=== PATIENT | male | born 1940 | race Caucasian/White ===

== ENCOUNTER 2017-12-05 11:01 | Outpatient (REF) | payer MEDICARE, BC, SELFPAY ==
[2017-12-05 20:52] LABS: Anion Gap 11.6 mmol/L (3-11); BUN 34 mg/dL (7-18); CO2 25.4 mmol/L (21.0-32.0); CREATININE 1.24 mg/dL (0.70-1.30); Chloride 103 mmol/L (98-107); Estimated GFR 56.83 (mL/min/1.73m2); Glucose 104 mg/dL (70-100); Potassium 4.2 mmol/L (3.5-5.1); Sodium 140 mmol/L (136-145)
[2017-12-06 12:54] LABS: Calcium 9.2 mg/dL (8.5-10.1)
== END 2017-12-05 11:21 ==
LOC: NCHCN 11:01
PROVIDERS: PCP Family Medicine; Visit Provider Family Medicine
DX: R25.2 Cramp and spasm (principal)
CPT/HCPCS: 80048; 83735

== ENCOUNTER 2018-12-06 08:40 | Outpatient (REF) | payer MEDICARE, BC, SELFPAY ==
[2018-12-06 21:37] LABS: Anion Gap 9.3 mmol/L (3-11); BUN 32 mg/dL (7-18); CO2 27.7 mmol/L (21.0-32.0); CREATININE 1.35 mg/dL (0.70-1.30); Calcium 9.2 mg/dL (8.5-10.1); Chloride 104 mmol/L (98-107); Estimated GFR 51.38 (mL/min/1.73m2); Glucose 117 mg/dL (70-100); Potassium 4.2 mmol/L (3.5-5.1); Sodium 141 mmol/L (136-145); Uric Acid 5.9 mg/dL (3.5-7.2)
[2018-12-06 22:13] LABS: Hemoglobin A1C 5.8 % (4.5-6.2)
== END 2018-12-06 09:00 ==
LOC: NCHCN 08:40
PROVIDERS: PCP Family Medicine; Visit Provider Family Medicine
DX: I10 Essential (primary) hypertension (principal); R73.02 Impaired glucose tolerance (oral); M10.9 Gout, unspecified
CPT/HCPCS: 80048; 83036; 84550

== ENCOUNTER 2019-03-05 22:05 | Outpatient (REF) | payer MEDICARE, BC, SELFPAY ==
[2019-03-05 21:10] LABS: COMMENT (LAB VIEW ONLY) 73.14 mg/dL
[2019-03-05 21:50] LABS: Microalb ug/mg Crea 134.3 ug/mg Cr
== END 2019-03-05 22:25 ==
LOC: NCHCN 22:05
PROVIDERS: PCP Family Medicine; Visit Provider Family Medicine
DX: R73.03 Prediabetes (principal)
CPT/HCPCS: 82043; 82570

== ENCOUNTER 2019-03-26 09:44 | Outpatient (REF) | payer MEDICARE, BC, SELFPAY ==
--- NOTE | 2019-03-26 08:40 | SKI_PTH ---
PATIENT: Atul Marino LOC: NCN #:[id number] AGE/SX: 79/M ROOM: RE03/26/[address]: Paradise Lucas : 1940 BED: DIS: 03/26/2019 SPEC #: [id number] RECD: 03/27/19 11:45 STATUS: CANDICE RESotero #: [id number] KAELB: 03/26/19 08:[address]: Paradise Lucas DEPT: Surgical Specimen RECD BY: Gerri Manjarrez Tissues: 1 - SKIN BIOPSY(SHAVE/PUNCH) 2 - SKIN BIOPSY(SHAVE/PUNCH) Procedures: SKIN LEVEL 4 Comments: [id number]
== END 2019-03-26 10:04 ==
LOC: NCHCN 09:44
PROVIDERS: PCP Family Medicine; Visit Provider Family Medicine
DX: L57.0 Actinic keratosis (principal)
CPT/HCPCS: 88305

== ENCOUNTER 2019-12-03 11:26 | Outpatient (REF) | payer MEDICARE, BC, SELFPAY ==
--- NOTE | 2019-12-03 09:30 | SKI_PTH ---
PATIENT: Atul Marino LOC: NCN U#:[id number] AGE/SX: 79/M ROOM: RE12/03/[address]: Paradise Lucas : 1940 BED: DIS: 12/03/2019 SPEC #: [id number] RECD: 12/04/19 12:31 STATUS: CANDICE RESotero #: [id number] KALEB: 12/03/19 09:[address]: Paradise Lucas DEPT: Surgical Specimen RECD BY: Gerri Manjarrez Tissues: 1 - SKIN BIOPSY(SHAVE/PUNCH) Procedures: SKIN LEVEL 4 Comments: [id number]
== END 2019-12-03 11:46 ==
LOC: NCHCN 11:26
PROVIDERS: PCP Family Medicine; Visit Provider Family Medicine
DX: L57.0 Actinic keratosis (principal)
CPT/HCPCS: 88305

== ENCOUNTER 2020-04-17 12:15 | Outpatient (REF) | payer MEDICARE, BC, SELFPAY ==
[2020-04-17 21:26] LABS: COMMENT (LAB VIEW ONLY) 85.91 mg/dL; Microalb ug/mg Crea 62.2 ug/mg Cr
[2020-04-17 21:29] LABS: ALT 24 U/L (16-63); AST 18 U/L (15-37); Albumin 4.2 g/dL (3.4-5.0); Alkaline Phosphatase 71 U/L (46-116); Anion Gap 6.1 mmol/L (3-11); BUN 31 mg/dL (7-18); Bilirubin, Total 0.9 mg/dL (0.2-1.0); CO2 26.9 mmol/L (21.0-32.0); CREATININE 1.3 mg/dL (0.70-1.30); Calcium 9.5 mg/dL (8.5-10.1); Calculated LDL 62 mg/dL (<100); Chloride 103 mmol/L (98-107); Cholesterol 165 mg/dL (<200); Estimated GFR 53.39 (mL/min/1.73m2); Glucose 114 mg/dL (74-106); HDL Cholesterol 59 mg/dL (40-60); Hemoglobin A1C 5.8 % (<5.7); Sodium 136 mmol/L (136-145); Total Protein 7.3 g/dL (6.4-8.2); Triglyceride 221 mg/dL (<150)
== END 2020-04-17 12:16 | disposition home or self-care (01) ==
LOC: NCHCN 12:15
PROVIDERS: PCP Family Medicine; Visit Provider Family Medicine
DX: I10 Essential (primary) hypertension (principal); E78.5 Hyperlipidemia, unspecified; R73.03 Prediabetes; I25.10 Atherosclerotic heart disease of native coronary artery without angina pectoris
CPT/HCPCS: 80053; 80061; 82043; 82570; 83036

== ENCOUNTER 2021-08-10 19:26 | Outpatient (REF) | payer MEDICARE, BC, SELFPAY ==
[2021-08-10 14:33] LABS: HCT 39.8 % (40.0-50.0); HGB 13.5 g/dL (13.5-17.5); MCH 31.8 pg (27.0-33.0); MCHC 33.9 % (32.0-36.0); MCV 94 fL (80-95); MPV 11.2 fL (8.0-11.0); Platelet Count 245 10^3/uL (130-400); RBC 4.24 10^6/uL (4.36-5.78); RDW 12.8 % (11.8-14.1); RDW-SD 44.1 fL; WBC 7.26 10^3/uL (4.4-10.8)
[2021-08-10 15:55] LABS: ALT 26 U/L (16-63); AST 23 U/L (15-37); Alkaline Phosphatase 67 U/L (46-116); Anion Gap 8.9 mmol/L (3-11); BUN 35 mg/dL (7-18); Bilirubin, Total 1.4 mg/dL (0.2-1.0); CO2 28.1 mmol/L (21.0-32.0); CREATININE 1.5 mg/dL (0.70-1.30); Calcium 9.4 mg/dL (8.5-10.1); Chloride 101 mmol/L (98-107); Estimated GFR 45.14 (mL/min/1.73m2); Glucose 102 mg/dL (74-106); Potassium 4.6 mmol/L (3.5-5.1); Sodium 138 mmol/L (136-145); TSH (W/Ref FT4) 1.46 uIU/mL (0.36-3.74); Total Protein 6.5 g/dL (6.4-8.2)
[2021-08-10 16:14] LABS: Calculated LDL 44 mg/dL (<100); Cholesterol 139 mg/dL (<200); HDL Cholesterol 76 mg/dL (40-60); Triglyceride 97 mg/dL (<150)
== END 2021-08-10 19:27 | disposition home or self-care (01) ==
LOC: NCHCN 19:26
PROVIDERS: PCP Family Medicine; Visit Provider Family Medicine
DX: I10 Essential (primary) hypertension (principal); I25.10 Atherosclerotic heart disease of native coronary artery without angina pectoris; R63.4 Abnormal weight loss
CPT/HCPCS: 80053; 80061; 85027; 84443

== ENCOUNTER 2022-06-10 15:11 | Outpatient (REF) | payer MEDICARE, BC, SELFPAY ==
[2022-06-10 15:48] LABS: Hemoglobin A1C 5.4 % (<5.7)
[2022-06-10 15:51] LABS: ALT 28 U/L (16-63); AST 31 U/L (15-37); Albumin 3.6 g/dL (3.4-5.0); Alkaline Phosphatase 245 U/L (46-116); BUN 33 mg/dL (7-18); Bilirubin, Total 0.8 mg/dL (0.2-1.0); CREATININE 1.4 mg/dL (0.70-1.30); Calcium 8.9 mg/dL (8.5-10.1); Chloride 108 mmol/L (98-107); Estimated GFR 50.81 (mL/min/1.73m2); Glucose 99 mg/dL (74-106); Potassium 5.1 mmol/L (3.5-5.1); Sodium 140 mmol/L (136-145); Total Protein 6.5 g/dL (6.4-8.2); Uric Acid 5.1 mg/dL (3.5-7.2)
[2022-06-10 16:02] LABS: Calculated LDL 41 mg/dL (<100); Cholesterol 142 mg/dL (<200); HDL Cholesterol 88 mg/dL (40-60); Triglyceride 68 mg/dL (<150)
[2022-06-10 16:18] LABS: COMMENT (LAB VIEW ONLY) 72.76 mg/dL; Microalb ug/mg Crea 66.4 ug/mg Cr
== END 2022-06-10 15:12 | disposition home or self-care (01) ==
LOC: NCHCN 15:11
PROVIDERS: PCP Family Medicine; Visit Provider Family Medicine
DX: E78.5 Hyperlipidemia, unspecified (principal); I10 Essential (primary) hypertension; M10.9 Gout, unspecified; R73.03 Prediabetes; R80.9 Proteinuria, unspecified; I25.10 Atherosclerotic heart disease of native coronary artery without angina pectoris
CPT/HCPCS: 80053; 80061; 82043; 82570; 83036; 84550

== ENCOUNTER 2023-06-19 12:31 | Outpatient (REF) | payer MEDICARE, BC, SELFPAY ==
[2023-06-19 15:27] LABS: Anion Gap 9.2 mmol/L (3-11); BUN 61 mg/dL (7-18); CO2 22.8 mmol/L (21.0-32.0); CREATININE 1.7 mg/dL (0.70-1.30); Calcium 8.6 mg/dL (8.5-10.1); Calculated LDL 42 mg/dL (<100); Chloride 104 mmol/L (98-107); Cholesterol 149 mg/dL (<200); Glucose 120 mg/dL (74-106); HDL Cholesterol 99 mg/dL (40-60); Sodium 136 mmol/L (136-145); Triglyceride 42 mg/dL (<150)
[2023-06-19 15:42] LABS: Potassium 6.1 mmol/L (3.5-5.1)
[2023-06-19 16:18] LABS: NT-proBNP 2951 pg/mL (<300)
== END 2023-06-19 12:32 | disposition home or self-care (01) ==
LOC: NCHCN 12:31
PROVIDERS: PCP Family Medicine; Visit Provider Family Medicine
DX: Z13.220 Encounter for screening for lipoid disorders (principal); I10 Essential (primary) hypertension; R60.9 Edema, unspecified
CPT/HCPCS: 80048; 80061; 83880

== ENCOUNTER 2023-06-22 14:57 | Outpatient (REF) | payer MEDICARE, BC, SELFPAY ==
[2023-06-22 22:59] LABS: PSA, Screening 423.6 ng/mL (<=6.5)
[2023-06-23 12:54] LABS: Albumin 62.7 % (55.8-66.1); Albumin g/dL 3.6 g/dL (3.6-5.2); Total Protein 5.7 g/dL (6.3-8.2)
== END 2023-06-22 14:58 | disposition home or self-care (01) ==
LOC: NCHCN 14:57
PROVIDERS: PCP Family Medicine; Visit Provider Family Medicine
DX: Z00.00 Encounter for general adult medical examination without abnormal findings (principal)
CPT/HCPCS: 84153; 84165

== ENCOUNTER 2023-07-05 13:22 | Outpatient (REF) | payer MEDICARE, BC, SELFPAY ==
[2023-07-05 15:07] LABS: Anion Gap 7.9 mmol/L (3-11); BUN 60 mg/dL (7-18); CO2 26.1 mmol/L (21.0-32.0); CREATININE 1.9 mg/dL (0.70-1.30); Calcium 8.5 mg/dL (8.5-10.1); Chloride 106 mmol/L (98-107); Glucose 117 mg/dL (74-106); Sodium 140 mmol/L (136-145)
[2023-07-05 15:14] LABS: Potassium 6.5 mmol/L (3.5-5.1)
== END 2023-07-05 13:23 | disposition home or self-care (01) ==
LOC: NCHCN 13:22
PROVIDERS: PCP Family Medicine; Visit Provider Family Medicine
DX: N18.31 Chronic kidney disease, stage 3a (principal)
CPT/HCPCS: 80048